=== PATIENT | male | born 1925 | race Caucasian/White ===

== ENCOUNTER 2016-04-27 15:40 | Observation (INO) | payer OTHER ==
[~2016-04-27] VITALS: Ht 165.1 cm; Wt 58.6 kg
[~2016-04-27 15:40] MED LIST: HYDROCHLOROTHIA25 MG PO; K-TAB10 MEQ PO; NORVASC10 MG PO; PROSCAR5 MG PO; SIMVASTATIN20 MG PO; VITAMIN D1000 INTUN PO; ZOCOR20 MG PO
[2016-04-27 17:17] LABS: BASOPHIL COUNT 0.1 K/uL (0-0.1); EOSINOPHIL (%) 1.4 % (0-5); EOSINOPHIL COUNT 0.2 K/uL (0-0.3); HEMATOCRIT 42.7 % (38.0-50.0); IMMATURE GRANULOCYTE (%) 0.3 % (0.0-0.7); IMMATURE GRANULOCYTE COUNT 0.4 K/uL; MCH 31.4 PG (29.0-34.0); MCHC 33.5 G/DL (30.0-36.0); MCV 93.6 FL (86-99); MEAN PLAT.VOLUME 9.5 uM^3 (9.0-12.4); MONOCYTE (%) 6.1 % (3-12); MONOCYTE COUNT 0.8 K/uL (0-0.8); NEUTROPHIL (%) 75.9 % (45-76); NEUTROPHIL COUNT 9.7 K/uL (1.8-6.4); PLATELET COUNT 225 K/uL (156-360); RBC DIS.WIDTH-CV 14.1 % (11.8-14.6); RBC DIS.WIDTH-SD 46.1 % (39-53); RED BLOOD COUNT 4.56 M/uL (4.00-5.50); WHITE BLOOD COUNT 12.8 K/uL (4.1-10.2)
[2016-04-27 17:25] LABS: CHLORIDE 104 mEq/L (99-109); SODIUM 138 mEq/L (136-147)
[2016-04-27 17:27] LABS: GLUCOSE 110 mg/dL (70-99)
[2016-04-27 17:28] LABS: ANION GAP 12 MEQ/L (2-14)
[2016-04-27 17:31] LABS: GFR ESTIMATE (CALCULATED) 32 mL/min/
[2016-04-27 17:32] LABS: UREA NITROGEN (BUN) 39 mg/dL (9-23)
[2016-04-27 17:33] LABS: CREATINE KINASE 126 IU/L (1-294); TOTAL CK 126 IU/L (1-294)
[2016-04-27 17:37] LABS: TROP-I INTERPRETATION NEGATIVE; TROPONIN-I 0.04 ng/mL (0.0-0.30)
[2016-04-27 17:41] LABS: CK-MB 3.9 ng/mL (0.0-4.9)
[2016-04-27] MEDS ORDERED: METOPROLOL TART25 MG PO (19:29)
[2016-04-27] MEDS ORDERED: HYDRALAZINE HCL10 MG PO (19:30)
[2016-04-27] MEDS ORDERED: LISINOPRIL-HCT1 EACH PO (19:30)
[2016-04-27] MEDS ORDERED: SPIRONOLACTONE25 MG PO (19:31)
[2016-04-28 00:04] LABS: TROP-I INTERPRETATION NEGATIVE; TROPONIN-I 0.05 ng/mL (0.0-0.30)
[2016-04-28 04:45] VITALS: BP 135/61
[2016-04-28 05:46] LABS: ALKALINE PHOSPHATASE 49 IU/L (3-129); ANION GAP 8 MEQ/L (2-14); CHLORIDE 105 MEQ/L (99-109); GFR ESTIMATE (CALCULATED) 41 mL/min/; POTASSIUM 4.7 MEQ/L (3.7-5.4); SAMPLE HEMOLYSIS CHECK 0; SAMPLE ICTERIC CHECK 0; SAMPLE LIPEMIA CHECK 0; SODIUM 137 MEQ/L (136-147); TOTAL BILIRUBIN 0.8 MG/DL (0.0-1.0); UREA NITROGEN (BUN) 35 mg/dL (9-23)
[2016-04-28 05:50] LABS: TROP-I INTERPRETATION NEGATIVE; TROPONIN-I 0.07 ng/mL (0.0-0.30)
[2016-04-28 06:04] LABS: GLUCOSE 79 mg/dL (70-99)
[2016-04-28 06:12] LABS: EOSINOPHIL (%) 3.6 % (0-5); EOSINOPHIL COUNT 0.3 K/uL (0-0.3); HEMATOCRIT 37.2 % (38.0-50.0); IMMATURE GRANULOCYTE (%) 0.1 % (0.0-0.7); LYMPHOCYTE COUNT 1.7 K/uL (1.0-2.8); MCH 30.4 PG (29.0-34.0); MCHC 32.3 G/DL (30.0-36.0); MCV 94.2 FL (86-99); MEAN PLAT.VOLUME 9.9 uM^3 (9.0-12.4); MONOCYTE (%) 10.8 % (3-12); MONOCYTE COUNT 0.8 K/uL (0-0.8); NEUTROPHIL (%) 60.5 % (45-76); NEUTROPHIL COUNT 4.3 K/uL (1.8-6.4); PLATELET COUNT 210 K/uL (156-360); RBC DIS.WIDTH-CV 14.2 % (11.8-14.6); RBC DIS.WIDTH-SD 48.9 % (39-53); RED BLOOD COUNT 3.95 M/uL (4.00-5.50)
[2016-04-28 06:13] LABS: WHITE BLOOD COUNT 7.1 K/uL (4.1-10.2)
[2016-04-28 08:15] VITALS: BP 146/64
[2016-04-28 09:03] LABS: ADD MIUA? NO; BILIRUBIN NEGATIVE; BLOOD NEGATIVE; COLOR YELLOW ((YELLOW)); GLUCOSE (STRIP) NEGATIVE; KETONES NEGATIVE; LEUKOCYTES NEGATIVE; NITRITE NEGATIVE; PROTEIN (STRIP) NEGATIVE; SPECIFIC GRAVITY 1.013 (1.000-1.030)
[2016-04-28 12:07] VITALS: BP 125/58
[2016-04-28 15:59] VITALS: BP 130/72
== END 2016-04-28 18:26 | disposition home or self-care (01) ==
LOC: EME 15:40 → EDOF 20:36 → 5WEST 22:28
PROVIDERS: Emergency Medicine; Internal Medicine
DX: R55 Syncope and collapse (principal); I12.9 Hypertensive chronic kidney disease with stage 1 through stage 4 chronic kidney disease, or unspecified chronic kidney disease; N17.9 Acute kidney failure, unspecified; N18.9 Chronic kidney disease, unspecified; E78.5 Hyperlipidemia, unspecified; N40.0 Benign prostatic hyperplasia without lower urinary tract symptoms; Z82.3 Family history of stroke; Z82.49 Family history of ischemic heart disease and other diseases of the circulatory system; Z81.1 Family history of alcohol abuse and dependence
CPT/HCPCS: 70551; 71010; 80048; 80053; 81003; 82550; 82553; 84484; 85025; 93005; 93880; 94640; 99281; 99284; G0378; J1644; J7030

== ENCOUNTER 2016-11-12 08:40 | Emergency (ER) | payer OTHER ==
[~2016-11-12] VITALS: Ht 165.1 cm; Wt 58.0 kg
[~2016-11-12 08:40] MED LIST changes: +HYDRALAZINE HCL10 MG PO; +LISINOPRIL-HCT1 EACH PO; +METOPROLOL TART25 MG PO; +SPIRONOLACTONE25 MG PO
[2016-11-12] MEDS ORDERED: KEFLEX500 MG PO ×2 (09:32→09:34)
[2016-11-12 10:30] VITALS: BP 193/115
== END 2016-11-12 10:31 | disposition home or self-care (01) ==
LOC: EME 08:40
DX: L91.8 Other hypertrophic disorders of the skin (principal); I10 Essential (primary) hypertension
CPT/HCPCS: 99281; 99283